=== PATIENT | female | born 1950 | race Caucasian/White ===

== ENCOUNTER 2016-12-07 14:07 | Inpatient (IN) | payer MEDICARE, OTHER ==
[~2016-12-07] VITALS: Ht 162.6 cm; Wt 77.4 kg
[2016-12-08] MEDS ORDERED: ESTR0.62 VAGINAL (10:30)
[2016-12-08] MEDS ORDERED: RALO1TAB PO (10:30)
[2016-12-08] MEDS ORDERED: SIMV20TA PO (10:30)
--- NOTE | 2016-12-21 12:33 | MH ---
cc: MALCOLM KO MD DATE OF ADMISSION 12/27/2016 ADMISSION DIAGNOSIS Osteoarthritis of the right knee, varus deformity right knee and pain of the right knee. HISTORY The patient is a 66-year-old white female who has experienced pain of her right knee of approximately 1-1/2 years duration. She had noted the gradual onset of her discomfort unrelated to injury or unusual activity. She had undergone previous orthopedic evaluation at which time she was treated with a cortisone injection that afforded her only minimal benefit. She later underwent an MRI scan of her right knee in December of this past year, the results of which reported osteoarthritis with severe medial compartment chondromalacia. Postsurgical and degenerative type changes of the medial meniscus were thought to be consistent with a prior partial meniscectomy. The lateral meniscus was intact. There was a small joint effusion associated with a moderate size Leone's cyst, moderately severe patellar chondromalacia. The patient remained symptomatic with pain about the medial aspect of her right knee which had been aggravated by weightbearing activities for which she was utilizing various ilim-gnb-arocvoj medications with minimal benefit described. She had to limit her exercise activities because of intermittent swelling and an occasional clicking in giving way like sensation. She also was becoming aware of a bow-legged type deformity of her lower extremity. She did note that she had undergone arthroscopic surgery of her right knee in approximately 2006 as completed in [place]. The patient described an uneventful recovery at that time. She was initially seen by the undersigned physician in June of this past year and at that time her x-ray studies confirmed obvious arthritic changes with near pfup-ah-[id number] apposition about the medial compartment associated with a varus deformity of at least 15 degrees magnitude. Findings and treatment options were reviewed with the patient at that time. The pros and cons of continuing with conservative management versus operative intervention that would involve a total knee arthroplasty were outlined in detail. Emphasis was made regarding the fact that the decision to proceed with surgery would be left entirely to the patient's discretion. The patient subsequently began to ride a bicycle as part of her exercise program, but unfortunately began to note a recurrence of pain about her right knee that began to interfere with her daily routine. She returned to the office in more recent follow-up indicating that she felt she had progressed to a point in time where she was ready to proceed with a more definitive course of treatment especially as related to operative intervention. In compliance with her wishes, she is currently being admitted in order that total knee replacement be completed. PAST MEDICAL HISTORY Hospitalizations and surgeries: in addition to the arthroscopic surgery noted have included a: 1. Open reduction internal fixation of a distal left radius fracture 2. D&C and 3. Colonoscopy The patient's medical illnesses include: 1. Elevated cholesterol 2. Osteoporosis MEDICATIONS Her current medications: 1. Simvastatin 20 mg daily 2. Raloxifene 60 mg daily 3. She also uses a Premarin vaginal cream on a weekly basis. ALLERGIES She denies any known drug allergies. REVIEW OF SYSTEMS She does wear glasses. Denies headache, seizure or syncope. No sinus congestion or epistaxis. Auditory acuity intact. No tinnitus. No bleeding gums or dysphagia. Denies cough, shortness of breath, upper respiratory infection, pneumonia or tuberculosis. No angina or heart disease. Appetite is good bowel movements are regular. No hepatitis, gallbladder disease, ulcers or hemorrhoids. She has had a history of urinary tract infection in the past. No kidney stones. No additional fractures other than that described. No psychiatric illness. Her remaining review of systems is unremarkable and noncontributory. FAMILY HISTORY The patient has been a for approximately four years, her at 61 years of age with a history of lung cancer. One son and one daughter indicated to be in good health. Family history is otherwise positive for hypertension, heart disease, skin cancer, multiple myeloma and Parkinson's disease. SOCIAL HISTORY The patient completed a college degree. She denies active use of tobacco for at least 30 years, but had been a one-pack per day user for approximately 20 years prior to that time. Ethanol consumption on a limited and social basis. PHYSICAL EXAMINATION Height 5 feet 4 inches, weight 157 pounds. GENERAL: An alert, oriented and responsive 66-year-old white female who sits quietly upon the examination table with no obvious distress. HEAD, EYES, EARS, NOSE, AND THROAT: Pupils are equally round and reactive to light. Extraocular movements full. Sclerae clear. External nares clear. External auditory canals clear. Dental intact. Mucous membranes pink and moist. Pharynx clear. NECK: Supple. Active range of motion with no significant pain. Carotid pulse bilaterally. Trachea midline. Thyroid without enlargement. LUNGS: Clear to auscultation and percussion. No CVA tenderness. No discomfort throughout the dorsal lumbar spine. HEART: Regular rhythm. No murmur or gallop. ABDOMEN: Soft and nontender. Bowel sounds present. PELVIC: Per primary care physician. EXTREMITIES: Right knee, no obvious swelling or effusion. There is medial joint line tenderness, varus orientation. Limited mobility with flexion maneuvering without significant crepitation, but pain at the extremes of motion. No collateral ligamentous instability. Emelina test and drawer sign negative. Pivot shift and Christian sign positive for medial compartment pain. Straight-leg raising unremarkable at 80 degrees. Mild antalgic gait. NEUROLOGIC: Cranial nerves II-XII grossly intact. IMPRESSION Osteoarthritis right knee, varus deformity right knee, pain right knee. PLAN Right total knee arthroplasty. The nature of the planned surgical procedure, the potential complications and risks associated, the expectations of surgery and the consent form were thoroughly reviewed with the patient prior to admission to the hospital. Magalie has indicated her full understanding regarding all of the above and given consent to proceed with treatment as outlined. Medical evaluation and clearance for surgery will be completed by her primary care physician, Dawn Lord. MD SHAWN Wilson/TAMIKA /11:49 AM /12:16 PM
[2016-12-27] MEDS ORDERED: POVIDONE IODINE 7.5% SCRUB 118 ML BOTTLE TOPICAL SCH (06:00)
[2016-12-27] MEDS ORDERED: SODIUM CHLORID 0.9% 500 ML IV PRN (06:00)
[2016-12-27] MEDS ORDERED: LACTATED RINGER'S 1000 ML IV PRN (06:00)
[2016-12-27] MEDS ORDERED: INSULIN HUMAN REGULAR 1,000 UNITS/10 ML VIAL SQ PRN (06:00)
[2016-12-27] MEDS ORDERED: METOPROLOL TARTRATE 25 MG TAB PO PRN (06:00)
[2016-12-27] MEDS ORDERED: CHLORHEXIDINE GLUCONATE 2 % 1 PACK (2 CLOTHS) TOPICAL PRN (06:00)
[2016-12-27] MEDS ORDERED: POVIDONE IODINE 5% (ANTISEPSIS KIT) 4 APPLICATIONS EACH NARE PRN (06:00)
[2016-12-27 06:08] VITALS: BP 155/79; PULSE 84; RESP 20; TEMP 98; O2SAT 98
[2016-12-27] MEDS: ceFAZolin 2 GM PREMIX 50 ML IV SCH ×2 (06:20→06:30)
[2016-12-27] MEDS ORDERED: SODIUM CHLORIDE 0.9% 20 ML VIAL ONE (06:37)
[2016-12-27] MEDS ORDERED: ceFAZolin INJ 1,000 MG VIAL ONE (06:37)
[2016-12-27] MEDS ORDERED: TRANEXAMIC ACID 1 GM PRIOR TO PROCEDURE IV SCH ×2 (07:30)
[2016-12-27] MEDS ORDERED: TRANEXAMIC ACID INJ 1,000 MG/10 ML AMP IV ONE (07:39)
[2016-12-27] MEDS ORDERED: DO NOT ADM ANY ANTICOAGULANT DRUGS PRN (09:38)
[2016-12-27] MEDS: DEXT 5%-NACL 0.45% 1000 ML INJ 1,000 ML IV SCH (09:40)
[2016-12-27] MEDS ORDERED: MIDAZOLAM HCL 2 MG/2 ML VIAL ONE ×2 (09:41→10:19)
[2016-12-27] MEDS ORDERED: TRANEXAMIC ACID INJ 1,000 MG in SODIUM CHLORIDE 0.9% INJ 100 ML IV SCH (09:45)
[2016-12-27] MEDS ORDERED: Post-op Orders (for Pharmacy) MISC XX ONE (09:45)
[2016-12-27] MEDS ORDERED: diphenhydrAMINE HCL 25 MG CAP PO PRN (09:45)
[2016-12-27] MEDS ORDERED: DOCUSATE SODIUM 100 MG CAP PO PRN (09:45)
[2016-12-27] MEDS ORDERED: ONDANSETRON HCL 4 MG/2 ML VIAL IVP PRN (09:45)
[2016-12-27] MEDS ORDERED: ACETAMINOPHEN/HYDROcodone 325 MG/5 MG TAB PO PRN (09:45)
[2016-12-27] MEDS ORDERED: SODIUM CHLORIDE 0.9% FLUSH 5 ML FLUSH IVF PRN (09:45)
[2016-12-27] MEDS ORDERED: NALOXONE HCL 0.4 MG/ML AMP IV PRN (09:45)
[2016-12-27] MEDS ORDERED: MISCELLANEOUS PHARMACY INFORMATION XX ONE (09:45)
[2016-12-27] MEDS ORDERED: MORPHINE SULFATE 30 MG/30 ML PCA IV SCH (09:45)
[2016-12-27] MEDS ORDERED: ACETAMINOPHEN 325 MG TAB PO PRN (09:45)
[2016-12-27] MEDS ORDERED: ROPIVACAINE 0.5% PF INJ 30 ML VIAL NERV BLOCK ONE (10:24)
[2016-12-27] MEDS ORDERED: TRANEXAMIC ACID 1 GM POST-OP IV SCH ×2 (10:30)
--- NOTE | 2016-12-27 10:36 | RADRPT ---
EXAM DATE/TIME: 12/27/2016 10:05 [facility] COMPARISON: No previous studies available for comparison. INDICATIONS : Post op, right knee replacement. MEDICAL HISTORY : None. SURGICAL HISTORY : None. ENCOUNTER: Initial ACUITY: 1 day PAIN SCORE: Non-responsive. LOCATION: Right knee FINDINGS: Post surgical features of right knee arthroplasty. The components are in normal anatomic alignment. N o significant bony fracture. Soft tissue swelling with surgical drains are noted. CONCLUSION: 1. Expected postoperative changes of right knee arthroplasty without significant fracture. Khurram Mae MD on December 27, 2016 at 10:32 Board Certified Radiologist. This report was verified electronically.
--- NOTE | 2016-12-27 10:44 | MP ---
cc: MALCOLM KO DATE OF SURGERY 27 Dec 2016 PREOPERATIVE DIAGNOSES Osteoarthritis of the right knee. Varus deformity right knee. Pain of the right knee. POSTOPERATIVE DIAGNOSES Osteoarthritis of the right knee. Varus deformity right knee. Pain of the right knee. PROCEDURE Right total knee arthroplasty. SURGEON MD [place] ANESTHESIA Spinal. INDICATIONS A 66-year-old white female with a history of right knee pain extending back at least 1-1/2 years. She had noted the gradual onset of her discomfort unrelated to injury or unusual activity. She has undergone previous orthopedic evaluation for which she was treated with cortisone injection that afforded her only minimal benefit. A subsequent MRI scan of her right knee in December of this past year reported osteoarthritis with severe medial compartment chondromalacia and postsurgical and degenerative type changes of the medial meniscus that were thought to be consistent with a prior partial meniscectomy. The lateral meniscus was intact. There was a small joint effusion with a moderate-sized Leone's cyst and moderately severe patellar chondromalacia. The patient remained symptomatic with pain about the medial aspect of her right knee which have been aggravated by weightbearing activities for which she had been utilizing various xdrf-ict-cbslonr medications with minimal benefit described. She began to limit her exercise activities because of intermittent swelling and an occasional clicking and giving-away sensation. She was also becoming aware of a bow-legged type deformity of her lower extremity. She had noted that she had undergone arthroscopic surgery of her right knee in approximately 2006 as completed in [place]. The patient described an uneventful recovery at that time and she was later seen by the undersigned physician in June of this past year. At that time x-ray studies confirmed obvious degenerative changes with near simg-kc-ntxk apposition about the medial compartment associated with a varus deformity of at least 15 degrees magnitude. Findings and treatment options were reviewed with the patient at that time. The pros and cons of continuing with conservative management versus operative intervention that would involve a total knee arthroplasty were outlined in detail. Emphasis was made regarding the fact that the decision to proceed with surgery would be left entirely to the patient's discretion. The patient tried to ride a bicycle thereafter as part of her exercise program but began to note recurrence of pain about her right knee that began to interfere with all aspects of her daily routine. She returned to the office more recently indicating that she had progressed to a point in time where she was ready to proceed with a more definitive course of treatment especially as related to operative intervention. In compliance with her wishes she is currently being admitted in order that total knee replacement be completed. FORMAT Following the induction of satisfactory spinal anesthesia as completed per the Department of Anesthesia, a tourniquet was established around the proximal portion of the right lower extremity. The extremity proper was isolated with a U drape, thereafter being prepped with Betadine solution and draped into a sterile field in the routine manner. Prior to initiation of the actual procedure the standard time-out protocol was completed. All parameters were appropriately addressed and confirmed by operating room personnel. The extremity was elevated for approximately 1 minute and the tourniquet thus inflated to 250 mmHg pressure. A sharp skin incision was initiated midline over the anterior aspect of the knee and developed through underlying subcutaneous tissue with hemostasis maintained by electrocautery. By deepening dissection the anterior capsule was exposed, a medial capsulotomy completed and the patella subluxed in the lateral orientation. Examination of the joint space revealed severe degenerative changes throughout the medial compartment extending into the patellofemoral articulation. The articular surface of the patella was resected with a power saw. The three-holed guide was utilized for establishing post holes. Medial and lateral meniscus structures were sharply excised as was the anterior cruciate ligament. A centering hole was placed in the distal aspect of the femur allowing positioning of the intramedullary guide. The distal femoral cutting jig was attached and the distal femur resected. AP measurement noted 65-mm sizing to be appropriate. The matching cutting block was positioned. Anterior, posterior and chamfer cuts were completed. The tibial plateau was thereafter subluxed in an anterior orientation allowing positioning of the extramedullary guide. The tibial plateau was resected and measured with 71-mm sizing determined to be satisfactory. A trial reduction followed utilizing a 65-mm anatomic femoral component, a 71-mm tibial base with both 10 and 12-mm bearing inserts trialed. The 12-mm thickness was determined to be the more favorable fit. The knee was readily brought to full extension. There was no laxity due to varus or valgus stress at both 0 and 90 degrees flexed posture. Orientation was confirmed as being appropriate with measurement of the pelvic guide through the mechanical axis of the knee. A trial reduction followed utilizing 31-mm standard three-post patellar button. Once again good tracking was demonstrated with no tendency toward subluxation. All trial components were thereafter removed. The remaining portion of the proximal tibia was prepared for insertion of the permanent component. The joint space was thoroughly lavaged with pulsating antibiotic solution, hemostasis being maintained by electrocautery. An autogenous bone plug was inserted into the distal femoral guide hole and thereafter a preparation of Palacos bone cement was utilized in inserting knee components in a sequential fashion which included a 71-mm fixed cruciate tibial plate to which a 12-mm Vanguard tibial bearing insert was secured with locking sanches. The 65-mm Vanguard femoral component was firmly seated onto the distal femur, excess cement being removed. The knee was brought to full extension and thereafter the 31-mm standard, three-post patellar button was attached and maintained in place with patellar clamp while cement hardening was completed. Final range of motion assessment for good tracking and stability throughout the knee. Irrigation was repeated with hemostasis maintained. Automatic drain tubes were inserted through superior stab wounds. The capsule was repaired with 0 Vicryl suture. The remaining portion of the wound was closed in layers in the routine manner, skin margins being reapproximated with a running subcuticular 3-0 Vicryl suture over which Steri-Strips were applied. Xeroform gauze and a bulky dry sterile dressing were placed. The tourniquet was deflated after 55 minutes of tourniquet time, the extremity being supported in a canvas knee splint. Anesthesia was discontinued and the patient thus transferred to a hospital bed and returned to the recovery room in satisfactory condition having tolerated her operative procedure well. Estimated blood loss was approximately 50 cc. MD SHAWN Wilson/SSB /9:33 AM /10:21 AM
[2016-12-27] MEDS ORDERED: KETOROLAC TROMETHAMINE 60 MG/2 ML (IM) VIAL IM ONE (11:44)
[2016-12-27] MEDS ORDERED: ONDANSETRON HCL 4 MG/2 ML VIAL IV PUSH ONE (11:44)
[2016-12-27] MEDS ORDERED: LACTATED RINGER'S 1000 ML INJ 1,000 ML IV ONE (11:44)
[2016-12-27] MEDS ORDERED: PROPOFOL 200 MG/20 ML AMP IV ONE (11:44)
[2016-12-27] MEDS ORDERED: PHENYLEPH/NS 1000 MCG/10 ML SYR IV ONE (11:44)
[2016-12-27 12:00] VITALS: BP 147/89; PULSE 75; RESP 16; TEMP 95.7; O2SAT 98
--- NOTE | 2016-12-27 13:28 | PD.CONS ---
HPI Service [facility] Consult Requested By Orthopedic surgery Reason for Consult Medical management Primary Care Physician Dawn Lord MD Diagnoses: History of Present Illness 66-year-old female with a history of hyperlipidemia, right knee osteoarthritis who despite medical management including epcg-mjs-eikasaj NSAIDs, corticosteroid injection and physical therapy continuing to have severe right knee pain 1 1/2 years affecting her daily living of activity including ambulation, was taken to the OR today and underwent right total knee arthroplasty. Patient has no prior right knee arthroscopy surgery 2006. During my exam, patient denies any chest pain or shortness of breath. Review of Systems Except as stated in HPI: all other systems reviewed are Neg Past Family Social History Allergies: Coded Allergies: No Known Allergies (Unverified , 12/08/16) Past Medical History Osteoarthritis right knee Osteoporosis Hyperlipidemia Past Surgical History Right total knee arthroplasty the 2016 Previous right knee arthroscopy surgery 2006 Open reduction internal fixation of a distal left radius fracture D&C Reported Medications 1. Simvastatin 20 mg daily 2. Raloxifene 60 mg daily 3. Premarin vaginal cream Q week Social History She denies any tobacco, alcohol or illicit drug intake Physical Exam Vital Signs Vital Signs Date Time Temp Pulse Resp B/P Pulse Ox O2 Delivery O2 Flow Rate FiO2 12/27/16 11:00 66 16 136/77 98 Nasal Cannula 2 12/27/16 10:45 52 17 126/70 100 Nasal Cannula 2 12/27/16 10:35 16 12/27/16 10:30 57 16 124/64 100 Nasal Cannula 2 12/27/16 10:15 69 16 111/66 100 Nasal Cannula 2 12/27/16 10:00 56 12 122/61 100 Nasal Cannula 2 12/27/16 09:45 66 12 114/60 99 Nasal Cannula 2 12/27/16 09:36 97.3 72 12 117/57 99 Nasal Cannula 2 12/27/16 06:08 98.0 84 20 155/79 98 Physical Exam GENERAL: This is a well-nourished, well-developed patient, in no apparent distress. SKIN: No rashes, ecchymoses or lesions. Cool and dry. HEAD: Atraumatic. Normocephalic. No temporal or scalp tenderness. EYES: Pupils equal round and reactive. Extraocular motions intact. No scleral icterus. No injection or drainage. ENT: Nose without bleeding, purulent drainage or septal hematoma. Throat without erythema, tonsillar hypertrophy or exudate. Uvula midline. Airway patent. NECK: Trachea midline. No JVD or lymphadenopathy. Supple, nontender, no meningeal signs. CARDIOVASCULAR: Regular rate and rhythm without murmurs, gallops, or rubs. RESPIRATORY: Clear to auscultation. Breath sounds equal bilaterally. No wheezes , rales, or rhonchi. GASTROINTESTINAL: Abdomen soft, non-tender, nondistended. No hepato-splenomegaly , or palpable masses. No guarding. MUSCULOSKELETAL: Extremities without clubbing, cyanosis, or edema. Right knee repair, dressing in place-neurovascular intact NEUROLOGICAL: Awake and alert. Cranial nerves II through XII intact. Motor and sensory grossly within normal limits. Five out of 5 muscle strength in all muscle groups. Normal speech. Laboratory Laboratory Tests Test 12/27/16 06:10 Blood Type O NEGATIVE Antibody Screen NEGATIVE Blood Bank Comment Imaging Last Impressions Knee X-Ray 12/27/16 0940 Signed Impressions: Service Date/Time: Sunday, December 27, 2016 10:05 - CONCLUSION: 1. Expected postoperative changes of right knee arthroplasty without significant fracture. Khurram Mae MD Assessment and Plan Assessment and Plan 66-year-old female with Status post right total knee arthroplasty 12/27/16 Management per orthopedic surgery Continue current postop care with post op antibiotics, pain management, incentive spirometry at bedside PT consult to treat and eval Xarelto for DVT prophylaxis Check H&H in the a.m. Hyperlipidemia Resume Zocor Osteoporosis Resume outpatient medication DVT prophylaxis: Xarelto Thank you for this consultation Code Status Full code Discussed Condition With Patient, daughter AmbrosioMauricio yingangela DANGELO December 27, 2016 13:28
[2016-12-27] MEDS ORDERED: ENALAPRILAT 1.25 MG/ML VIAL IV PUSH PRN (13:30)
[2016-12-27] MEDS ORDERED: RESP: ALBUTEROL 2.5 MG/IPRATROPIUM 0.5 MG NEB (PRN) NEB (13:30)
[2016-12-27] MEDS: PCA - TOTAL MG MORPHINE DELIVERED PER SHIFT SCH ×2 (14:00→21:16)
[2016-12-27 16:00] VITALS: BP 120/65; PULSE 80; RESP 15; TEMP 96.6; O2SAT 93
[2016-12-27 20:35] VITALS: BP 106/57; PULSE 86; RESP 16; TEMP 98; O2SAT 96
[2016-12-27] MEDS: SODIUM CHLORIDE 0.9% FLUSH 5 ML FLUSH IVF SCH (21:00)
[2016-12-27] MEDS ORDERED: ZOLPIDEM TARTRATE 5 MG TAB PO PRN (21:00)
[2016-12-27] MEDS: PRAVASTATIN SOD 40 MG TAB PO SCH (21:15)
[2016-12-28] VITALS (7 sets, daily range): BP systolic 90–145; BP diastolic 51–68; PULSE 72–92; RESP 16–18; TEMP 97.3–99.9; O2SAT 94–99
[2016-12-28] MEDS: DEXT 5%-NACL 0.45% 1000 ML INJ 1,000 ML IV SCH ×3 (00:59→09:19)
[2016-12-28] MEDS: PCA - TOTAL MG MORPHINE DELIVERED PER SHIFT SCH ×2 (04:57→14:00)
[2016-12-28 05:05] LABS: REVIEW FLAG FINAL
[2016-12-28 05:30] LABS: BICARBONATE 23.8 MEQ/L (21.0-32.0); POTASSIUM 3.7 MEQ/L (3.5-5.1)
[2016-12-28] MEDS ORDERED: ASPI325T PO (06:21)
[2016-12-28] MEDS ORDERED: HYDR-3516 PO (06:21)
--- NOTE | 2016-12-28 06:23 | HHI.FF ---
Face to Face Verification Diagnosis: (1) DJD (degenerative joint disease) of knee Physical Therapy Gait training Knee: Total knee, Protocol: Right, Full weight bearing Right LE Weight Bearing: WB as tolerated Right LE Range of Motion: Active ROM Nursing Dressing Changes: Daily dressing change I have seen patient Magalie Pascual on 12/28/16. My clinical findings support the need for the requested home health care services because: Limited ability to care for self High risk of falls I certify that my clinical findings support that this patient is homebound because: Post-op weakness Unsteady gait/balance Unsafe to leave home unassisted Alessandro Sarah MD Dec 28, 2016 06:23
[2016-12-28] MEDS ORDERED: WALKER WHEELS/F1 MIS (06:25)
[2016-12-28] MEDS: SODIUM CHLORIDE 0.9% FLUSH 5 ML FLUSH IVF SCH ×2 (09:00→21:00)
[2016-12-28] MEDS: RIVAROXABAN 10 MG TAB PO SCH (09:17)
[2016-12-28] MEDS: ACETAMINOPHEN/HYDROcodone 325 MG/5 MG TAB PO PRN ×4 (09:18→22:28)
[2016-12-28] MEDS: RALOXIFENE HCL 60 MG TAB PO SCH (09:19)
--- NOTE | 2016-12-28 13:37 | HHI.PR ---
Subjective Remarks In bed. Says she has no pain at this time. Denies any chest pain or sob. No fever or chills. No n/v/d/c. Objective Vitals Vital Signs Date Time Temp Pulse Resp B/P Pulse Ox O2 Delivery O2 Flow Rate FiO2 12/28/16 10:18 16 12/28/16 08:00 99.9 92 18 104/59 96 12/28/16 04:57 16 12/28/16 04:30 98.7 77 16 90/51 95 12/28/16 00:40 97.7 88 16 107/55 96 12/27/16 21:16 16 12/27/16 20:35 98.0 86 16 106/57 96 12/27/16 16:00 96.6 80 15 120/65 93 12/27/16 14:00 16 I/O 12/27/16 12/27/16 12/27/16 12/28/16 12/28/16 12/28/16 07:00 15:00 23:00 07:00 15:00 23:00 Intake Total 2020 ml 1836 ml 1182 ml Output Total 610 ml 100 ml 100 ml Balance 1410 ml 1736 ml 1082 ml Intake Oral 720 ml 480 ml 240 ml IV Total 1356 ml 942 ml Other 1300 ml Output Urine Total 500 ml Drainage Total 100 ml 100 ml 100 ml Estimated Blood Loss 10 ml # Voids 1 1 0 # Bowel Movements 0 0 Result Diagram: 12/28/16 0419 12/28/16 0419 Imaging Last Impressions Knee X-Ray 12/27/16 0940 Signed Impressions: Service Date/Time: Tuesday, December 27, 2016 10:05 - CONCLUSION: 1. Expected postoperative changes of right knee arthroplasty without significant fracture. Khurram Mae MD Objective Remarks GENERAL: This is a well-nourished, well-developed patient, in no apparent distress. CARDIOVASCULAR: Regular rate and rhythm without murmurs, gallops, or rubs. RESPIRATORY: Clear to auscultation. Breath sounds equal bilaterally. No wheezes , rales, or rhonchi. GASTROINTESTINAL: Abdomen soft, non-tender, nondistended. No hepato-splenomegaly , or palpable masses. No guarding. MUSCULOSKELETAL: S/P right knee surgery, dressing in place, neurovascular intact , Extremities without clubbing, cyanosis, or edema. NEUROLOGICAL: Awake and alert. Cranial nerves grossly intact. Motor and sensory grossly within normal limits. Normal speech. A/P Assessment and Plan 66-year-old female with Right knee OA - Status post right total knee arthroplasty 12/27/16 Management per orthopedic surgery Continue current postop care with post op antibiotics, pain management, incentive spirometry at bedside PT consult to treat and eval Xarelto for DVT prophylaxis H&H at baseline Hyperlipidemia Resume Zocor Osteoporosis Resume outpatient medication DVT prophylaxis: Xarelto Thank you for this consultation, will follow along. Code Status Full code Discussed Condition With Patient, nurse Agnes Covarrubias MD Dec 28, 2016 13:37
[2016-12-28] MEDS ORDERED: LACTULOSE SYRUP 20 GM/30 ML CUP PO PRN (19:45)
[2016-12-28] MEDS: DOCUSATE SODIUM 50 MG/SENNA 8.6 MG TAB PO SCH (21:04)
[2016-12-28] MEDS: SENNOSIDES 8.6 MG TAB PO SCH (21:04)
[2016-12-28] MEDS: PRAVASTATIN SOD 40 MG TAB PO SCH (21:04)
[2016-12-28] MEDS: MAGNESIUM HYDROXIDE SUSP 30 ML CUP PO SCH (21:04)
[2016-12-29] MEDS: ACETAMINOPHEN/HYDROcodone 325 MG/5 MG TAB PO PRN ×5 (04:42→22:19)
[2016-12-29] MEDS: RIVAROXABAN 10 MG TAB PO SCH (07:32)
[2016-12-29] MEDS: RALOXIFENE HCL 60 MG TAB PO SCH (07:33)
[2016-12-29] MEDS: DOCUSATE SODIUM 50 MG/SENNA 8.6 MG TAB PO SCH ×2 (07:33→21:00)
[2016-12-29] MEDS: POLYETHYLENE GLYCOL 17 GM PKG PO SCH (07:33)
[2016-12-29] MEDS: MAGNESIUM HYDROXIDE SUSP 30 ML CUP PO SCH ×2 (07:33→21:00)
[2016-12-29 08:00] VITALS: BP 121/67; PULSE 79; RESP 18; TEMP 97.5; O2SAT 94
--- NOTE | 2016-12-29 09:55 | HHI.PR ---
Subjective Remarks In bed, says she feel a little tired, but no sob, cp, n/v/d/c. Pain is controlled by meds. Objective Vitals Vital Signs Date Time Temp Pulse Resp B/P Pulse Ox O2 Delivery O2 Flow Rate FiO2 12/29/16 08:00 97.5 79 18 121/67 94 12/28/16 23:35 98.2 90 17 130/61 95 12/28/16 20:40 98.1 77 16 130/66 95 12/28/16 16:00 98.4 82 18 145/68 94 12/28/16 14:00 16 12/28/16 12:00 97.3 72 18 131/60 99 12/28/16 10:18 16 I/O 12/28/16 12/28/16 12/28/16 12/29/16 12/29/16 12/29/16 07:00 15:00 23:00 07:00 15:00 23:00 Intake Total 1182 ml 480 ml 480 ml 240 ml Output Total 100 ml 225 ml 20 ml Balance 1082 ml 480 ml 255 ml 220 ml Intake Oral 240 ml 480 ml 480 ml 240 ml IV Total 942 ml Drainage Total 100 ml 225 ml 20 ml # Voids 0 3 1 1 # Bowel Movements 0 0 0 0 Result Diagram: 12/28/16 0419 12/28/16 0419 Imaging Last Impressions Knee X-Ray 12/27/16 0940 Signed Impressions: Service Date/Time: Tuesday, December 27, 2016 10:05 - CONCLUSION: 1. Expected postoperative changes of right knee arthroplasty without significant fracture. Khurram Mae MD Objective Remarks GENERAL: This is a well-nourished, well-developed patient, in no apparent distress. CARDIOVASCULAR: Regular rate and rhythm without murmurs, gallops, or rubs. RESPIRATORY: Clear to auscultation. Breath sounds equal bilaterally. No wheezes , rales, or rhonchi. GASTROINTESTINAL: Abdomen soft, non-tender, nondistended. No hepato-splenomegaly , or palpable masses. No guarding. MUSCULOSKELETAL: S/P right knee surgery, dressing in place, neurovascular intact , Extremities without clubbing, cyanosis, or edema. NEUROLOGICAL: Awake and alert. Cranial nerves grossly intact. Motor and sensory grossly within normal limits. Normal speech. A/P Assessment and Plan 66-year-old female with Right knee OA - Status post right total knee arthroplasty 12/27/16 Management per orthopedic surgery Continue current postop care with post op antibiotics, pain management, incentive spirometry at bedside PT consult to treat and eval Xarelto for DVT prophylaxis Postsurgical anemia.H&H drop a little postsurgical , start ferrous sulfate. Hyperlipidemia Resume Zocor Osteoporosis Resume outpatient medication DVT prophylaxis: Xarelto Thank you for this consultation, will follow along. Code Status Full code Discussed Condition With Patient, nurse Agnes Covarrubias MD Dec 29, 2016 09:55
[2016-12-29] MEDS ORDERED: FERR324T4 PO (09:58)
[2016-12-29 12:00] VITALS: BP 139/68; PULSE 81; RESP 18; TEMP 98.8; O2SAT 96
[2016-12-29] MEDS ORDERED: PERI8.6T PO (16:26)
[2016-12-29] MEDS ORDERED: FERROUS SULFATE 325 MG (65 MG ELEMENTAL IRON) TAB PO ONE (16:30)
[2016-12-29 20:45] VITALS: BP 136/59; PULSE 84; RESP 16; TEMP 97.5; O2SAT 95
[2016-12-29] MEDS: SODIUM CHLORIDE 0.9% FLUSH 5 ML FLUSH IVF SCH (21:00)
[2016-12-29] MEDS: SENNOSIDES 8.6 MG TAB PO SCH (21:00)
[2016-12-29] MEDS: PRAVASTATIN SOD 40 MG TAB PO SCH (22:19)
[2016-12-30 00:15] VITALS: BP 112/62; PULSE 88; RESP 16; TEMP 97.9; O2SAT 96
[2016-12-30] MEDS: ACETAMINOPHEN/HYDROcodone 325 MG/5 MG TAB PO PRN ×3 (04:48→13:26)
[2016-12-30] MEDS: PCA - TOTAL MG MORPHINE DELIVERED PER SHIFT SCH ×2 (06:00→13:26)
[2016-12-30 08:00] VITALS: BP 119/58; PULSE 92; RESP 15; TEMP 98.6; O2SAT 95
[2016-12-30] MEDS ORDERED: FERROUS SULFATE 325 MG (65 MG ELEMENTAL IRON) TAB PO SCH (09:00)
[2016-12-30] MEDS: MAGNESIUM HYDROXIDE SUSP 30 ML CUP PO SCH (09:00)
[2016-12-30] MEDS: SODIUM CHLORIDE 0.9% FLUSH 5 ML FLUSH IVF SCH (09:00)
[2016-12-30] MEDS: DOCUSATE SODIUM 50 MG/SENNA 8.6 MG TAB PO SCH (09:00)
[2016-12-30] MEDS: POLYETHYLENE GLYCOL 17 GM PKG PO SCH (09:00)
[2016-12-30] MEDS: RALOXIFENE HCL 60 MG TAB PO SCH (09:00)
[2016-12-30] MEDS: DEXT 5%-NACL 0.45% 1000 ML INJ 1,000 ML IV SCH (09:10)
[2016-12-30] MEDS: RIVAROXABAN 10 MG TAB PO SCH (09:10)
[2016-12-30 12:00] VITALS: BP 125/75; PULSE 82; RESP 16; TEMP 97.4; O2SAT 98
--- NOTE | 2016-12-30 13:19 | HHI.PR ---
Subjective Remarks In the chair. Says she feels improving. Family at bedside. Patient says she doesn't have much appetite, but she is eating. No n/v/d/c. No fever or chills. Pain controlled. Objective Vitals Vital Signs Date Time Temp Pulse Resp B/P Pulse Ox O2 Delivery O2 Flow Rate FiO2 12/30/16 12:00 97.4 82 16 125/75 98 12/30/16 08:00 98.6 92 15 119/58 95 12/30/16 00:15 97.9 88 16 112/62 96 12/29/16 20:45 97.5 84 16 136/59 95 I/O 12/29/16 12/29/16 12/29/16 12/30/16 12/30/16 12/30/16 07:00 15:00 23:00 07:00 15:00 23:00 Intake Total 240 ml 480 ml 240 ml Output Total 20 ml Balance 220 ml 480 ml 240 ml Intake Oral 240 ml 480 ml 240 ml Drainage Total 20 ml # Voids 1 1 1 # Bowel Movements 0 0 1 Result Diagram: 12/28/16 0419 12/28/16 0419 Imaging Last Impressions Knee X-Ray 12/27/16 0940 Signed Impressions: Service Date/Time: Tuesday, December 27, 2016 10:05 - CONCLUSION: 1. Expected postoperative changes of right knee arthroplasty without significant fracture. Khurram Mae MD Objective Remarks GENERAL: This is a well-nourished, well-developed patient, in no apparent distress. CARDIOVASCULAR: Regular rate and rhythm without murmurs, gallops, or rubs. RESPIRATORY: Clear to auscultation. Breath sounds equal bilaterally. No wheezes , rales, or rhonchi. GASTROINTESTINAL: Abdomen soft, non-tender, nondistended. No hepato-splenomegaly , or palpable masses. No guarding. MUSCULOSKELETAL: S/P right knee surgery, dressing in place, neurovascular intact , Extremities without clubbing, cyanosis, or edema. NEUROLOGICAL: Awake and alert. Cranial nerves grossly intact. Motor and sensory grossly within normal limits. Normal speech. A/P Assessment and Plan 66-year-old female with Right knee OA - Status post right total knee arthroplasty 12/27/16 Management per orthopedic surgery Continue current postop care with post op antibiotics, pain management, incentive spirometry at bedside PT consult to treat and eval Xarelto for DVT prophylaxis Postsurgical anemia.H&H drop a little postsurgical , start ferrous sulfate. Hyperlipidemia Resume Zocor Osteoporosis Resume outpatient medication DVT prophylaxis: Xarelto Thank you for this consultation. Stable medically can be DC to rehab. To follow up with PCP and ortho as OP. Code Status Full code Discussed Condition With Patient, nurse Agnes Covarrubias MD Dec 30, 2016 13:19
--- NOTE | 2017-01-01 08:25 | MD ---
cc: MAIKELMALCOLM ADMISSION DATE: 12/27/2016 DISCHARGE DATE: 12/30/2016 ADMISSION DIAGNOSIS Osteoarthritis of the right knee, varus deformity right knee and pain of the right knee. DISCHARGE DIAGNOSIS Osteoarthritis of the right knee, varus deformity right knee and pain of the right knee. HISTORY A 66-year-old white female with right knee pain of 1-1/2 years duration of gradual onset unrelated to injury or unusual activity. She had undergone previous orthopedic evaluation at which time she was treated with cortisone injection with only minimal benefit described. Subsequent MRI scan reported osteoarthritis with severe medial compartment chondromalacia. There were postsurgical changes and degeneration of the medial meniscus thought to be consistent with prior history of partial meniscectomy, lateral meniscus intact, small joint effusion and moderate-sized Leone's cyst, moderately severe patellar chondromalacia. The patient remained symptomatic with pain about the medial aspect of her right knee aggravated by weightbearing activities for which she was utilizing [id number] medications with minimal benefit. She had to limit her exercise activities because of intermittent swelling and clicking about her right knee associated with a giving way like sensation. She was becoming aware of a progressive bow-legged type deformity reporting that she had undergone arthroscopic surgery of her right knee in approximately 2006 completed in [place]. An uneventful recovery was noted at that time. She was subsequently seen by the undersigned physician in June of the past year and at that time her x-ray studies confirmed obvious arthritic changes with near [id number] apposition about the medial compartment associated with a varus deformity of at least 15 degrees magnitude. Findings and treatment options were reviewed at that time. The pros and cons of continuing with conservative management versus operative intervention involving total knee arthroplasty were outlined in detail. Emphasis was made regarding the fact that the decision to proceed with surgery would be left entirely to the patient's discretion. The patient tried to continue with conservative management riding a bicycle as part of her exercise program but noted recurrence of pain about her right knee that began to interfere with her daily routine. She returned to the office more recently indicating that she was becoming increasingly more symptomatic with pain and felt that she was approaching a point in time where she was in need of proceeding with a more definitive course of treatment. Once again the involvement of total knee arthroplasty was outlined in detail for which the patient expressed her desire to proceed accordingly and in compliance with her wishes she was scheduled for admission at this time in order that the above be accomplished. Her physical examination at the time admission revealed no obvious swelling or effusion about the right knee. There was medial joint line tenderness with varus orientation, limited mobility with flexion maneuvering without associated crepitation, pain at the extremes of motion. No collateral ligamentous instability. Emelina test and drawer sign negative. Pivot shift and Christian sign positive for medial compartment pain. Straight-leg raising unremarkable at 80 degrees. Antalgic gait. HOSPITAL COURSE Prior to admission to the hospital the patient had undergone medical evaluation and clearance for surgery as completed by her primary care physician, Dr. Lord. She was taken to the operating room on 27 Dec 2016 and on that date underwent a right total knee arthroplasty completed in an uncomplicated manner. The patient was noted to have tolerated her operative procedure well and her postoperative course was stable thereafter. She was progressively mobilized under the guidance of physical therapy, being permitted weightbearing to tolerance about the right lower extremity. Follow-up examination of her surgical wound noted it to be intact, healing favorably, no evidence of infection. Medical followup per the hospitalist service. DVT prophylaxis initiated. Road Manager consulted to assist with discharge planning. The patient indicated her desire for rehab placement for which plans were finalized through the Social Service Department. Pending medical clearance she was scheduled for transfer on the third postoperative day at which time she was noted to be making favorable progress with regards to her rehab program. She was scheduled be seen in office followup in approximately 4 weeks. Her condition at the time of discharge was stable. Prognosis favorable DISCHARGE MEDICATIONS 1. Hydrocodone 5/325, #60. 2. Aspirin 325 mg one tablet twice daily for 3 weeks, #40. MD SHAWN Wilson/SSB /6:55 AM /8:17 AM
== END 2016-12-30 15:39 | DRG 470 ==
LOC: HSDI 12-27 05:24 → EDUNIT# 12-27 07:30 → N06A 12-27 11:29
PROVIDERS: ADMIT Orthopaedic Surgery; ATTEND Orthopaedic Surgery
PROC: 3E0T3CZ (ICD-10-PCS; 2016-12-27)
PROC: 0SRC0J9 Replacement of Right Knee Joint with Synthetic Substitute, Cemented, Open Approach (ICD-10-PCS; principal; 2016-12-27 07:02)
DX: M17.11 Unilateral primary osteoarthritis, right knee (principal); E78.5 Hyperlipidemia, unspecified; M22.41 Chondromalacia patellae, right knee; M21.161 Varus deformity, not elsewhere classified, right knee; M81.0 Age-related osteoporosis without current pathological fracture; D64.9 Anemia, unspecified; M71.21 Synovial cyst of popliteal space [Baker], right knee; Z87.891 Personal history of nicotine dependence
CPT/HCPCS: 73560; 80048; 85014; 85018; 86850; 86900; 86901; 88305; 94150; C1776; J0690; J1885; J2250; J2270; J2370; J2405; J2795; J7120; L1830

== ENCOUNTER → 2016-12-08 | Outpatient (CLI) | payer MEDICARE, OTHER ==
[~2016-12-08] MED LIST: ASPI325T PO; ESTR0.62 VAGINAL; FERR324T4 PO; HYDR-3516 PO; PERI8.6T PO; RALO1TAB PO; SIMV20TA PO; WALKER WHEELS/F1 MIS
[2016-12-08 10:56] LABS: AUTOMATED NEUTROPHIL # 2.2 TH/MM3 (1.8-7.7); BASOPHIL # 0.1 TH/MM3 (0-0.2); BASOPHIL % 1.6 % (0.0-2.0); EOSINOPHIL # 0.1 TH/MM3 (0-0.4); HEMATOCRIT 36.6 % (35.0-46.0); HEMO FLAGS DIFF FINAL; MEAN CELL VOLUME 89.3 FL (80.0-100.0); MEAN CORPUSCULAR HEMOGLOBIN 30.3 PG (27.0-34.0); MONO % 10.2 % (0.0-8.0); NEUT % 45.2 % (16.0-70.0); PLATELET COUNT 230 TH/MM3 (150-450); RED CELL DISTRIBUTION WIDTH 13.4 % (11.6-17.2); WHITE BLOOD COUNT 4.8 TH/MM3 (4.0-11.0)
[2016-12-08 11:17] LABS: INTERNATIONAL NORMALIZED RATIO 0.9 RATIO; PROTHROMBIN TIME - PATIENT 10.2 SEC (9.8-11.6)
[2016-12-08 11:20] LABS: BICARBONATE 31.6 MEQ/L (21.0-32.0); POTASSIUM 4.4 MEQ/L (3.5-5.1)
--- NOTE | 2016-12-08 11:40 | RADRPT ---
EXAM DATE/TIME: 12/08/2016 11:18 [facility] COMPARISON: No previous studies available for comparison. INDICATIONS : Evaluate for pneumonia, pneumothorax or communicable disease. Pre op for right knee surgery 12-27-16. MEDICAL HISTORY : None. SURGICAL HISTORY : None. ENCOUNTER: Initial ACUITY: 1 day PAIN SCORE: 0/10 LOCATION: Bilateral chest FINDINGS: PA and lateral views of the chest demonstrate the lungs to be symmetrically aerated without evidence of mass, infiltrate or effusion. The cardiomediastinal contours are unremarkable. Osseous structure s are intact. CONCLUSION: No acute disease. Rajinder Thomas MD on December 08, 2016 at 11:38 Board Certified Radiologist. This report was verified electronically.
[2016-12-08 12:27] LABS: BLOOD, URINE NEG (NEG); GLUCOSE,URINE NEG (NEG); KETONE, URINE NEG (NEG); NITRITE,URINE NEG (NEG); PH, URINE 7.5 (5.0-8.5); URINE COLOR YELLOW (YELLW/STRAW)
[2016-12-08 12:31] LABS: COMMENT (UR) CATH-CULT NOT IND; CULTURE IF INDICATED CATH CULTURE NOT IND
== END ==
LOC: CPRE 10:02
PROVIDERS: ATTEND Orthopaedic Surgery
DX: Z01.812 Encounter for preprocedural laboratory examination (principal); Z01.811 Encounter for preprocedural respiratory examination; M17.11 Unilateral primary osteoarthritis, right knee
CPT/HCPCS: 36415; 71020; 80048; 81001; 85025; 85610